=== PATIENT | female | born 1985 ===

== ENCOUNTER 2019-11-29 09:15 | Inpatient (IN) | payer OTHER ==
[~2019-11-29] VITALS: Ht 167.6 cm; Wt 77.1 kg
[2019-11-29] MEDS ORDERED: METROTEXATE PO (10:11)
[2019-11-29] MEDS ORDERED: XELJANZ XR11 MG PO (10:44)
[2019-12-06] MEDS ORDERED: TREXALL5 MG PO (11:48)
== END 2019-12-08 15:09 | DRG 470 ==
LOC: O/R 12-06 09:15 → SURH 12-06 09:15 → O/R 12-06 09:44 → SURH 12-06 13:00 → SURG 12-06 16:57
PROVIDERS: ADMIT Orthopaedic Surgery
PROC: 0SR90J9 Replacement of Right Hip Joint with Synthetic Substitute, Cemented, Open Approach (ICD-10-PCS; principal; 2019-12-06 13:00)
DX: M16.11 Unilateral primary osteoarthritis, right hip (principal); D62 Acute posthemorrhagic anemia